=== PATIENT | male | born 1980 | race Caucasian/White ===

== ENCOUNTER 2016-09-27 10:41 | Emergency (ER) | payer OTHER ==
[~2016-09-27] VITALS: Ht 175.3 cm; Wt 84.1 kg
[2016-09-27 10:46] VITALS: BP 128/91; PULSE 72; RESP 15; O2SAT 100
--- NOTE | 2016-09-27 10:53 | ED.REPORT ---
HPI-Medication Refill Date of Service Sep 27, 2016 ED Provider: Melany Stevenson History of Present Illness: need medications lamictal 50 mg l,ast dose 3 days ago, lexapro 10 mg c/o anxiety being seen on Thursday at [facility]. Finished drug and etoh treatment 08/31/2016. 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 drug of choice was meth per his report Nursing Notes Stated Complaint: MEDICATIONS Chief Complaint: General Complaint Nursing Notes Reviewed: Yes Allergies: Coded Allergies: Penicillins (Verified Allergy, Unknown, throat swells?, 09/27/16) General Time Seen by Provider: 10:53 Chief Complaint Out of meds since (out of meds for 3 days) Hx Obtained From: Patient Onset Occurred: 3 days ago Past Medical History Past Medical History Denies: Asthma, Diabetes mellitus, Hypertension Past Surgical History denies Smoking History Current Every Day Smoker (1/2 pack a day for 25 years) Social History Alcohol Use: Denies alcohol use Drug Use: Denies drug use (none for 6 months per his reprt, drug of choice was meth) Other Social History: Lives with parents Occupation no work or school 09/27/2016 Ambulatory Status Independent Review of Systems Basic Review of Systems Eyes: Vision NL Hematologic: No bleeding Psychiatric: Normal thought content Physical Exam Initial Vital Signs Vital Signs (First) Date Time Temp Pulse Resp B/P Pulse Ox O2 Delivery O2 Flow Rate FiO2 09/27/16 10:46 36.0 72 15 128/91 100 Initial VS: Reviewed, Vital signs normal General/Constitutional: Well-developed, Well-nourished Head / Eyes: Atraumatic, Normocephalic, PERRL ENT: Mucous membranes moist, Conjunctiva normal, No scleral icterus Neck: Supple, Non-tender, Full range of motion Respiratory: Breath sounds normal, Clear to auscultation, No respiratory distress Cardiovascular: Regular rate & rhythm, Heart sounds normal, Intact distal pulses Abdomen / GI: Soft, Non-tender, No guarding, No rebound, No distention Back: No CVA tenderness Lymphatic: No lymphadenopathy Extremities: Vascular intact, Neuro intact, No swelling, No tenderness Skin: Warm, Dry, No cyanosis Neurologic: Alert, Oriented, Nonfocal Psychiatric: Mood/affect normal, Behavior normal, Normal thought content General/Constitutional: Awake, Alert, No acute distress, Well appearing, Well developed, Well hydrated, Well nourished, Cooperative, Not toxic appearing Respiratory / Chest: Atraumatic, Breath sounds NL, Breath sounds = bilat, No respiratory distress Cardiovascular: Heart rate NL, Regular rhythm, Heart sounds NL Re-Evaluation & MDM Med Decision/Clinical Course 35 year old male here for refill of medications that were started in treatment for meth use per his report. States has been out of medication for 3 days. Plans to stay in the [facility] and is currently living with his parents. Reports an appointment on Thursday with [facility] to establish there. Patient is also requesting " something for anxiety". Had tapered up to 50 mg on lamictal. Patient is alert and oriented, no slurring of speech, request is reasonable. No sign of current drug use, no sign of etoh use. Discussed with patient with hx of drug use will not provide benzo's but will provide visteral. Patient is agreeable with this. Medication refills are provided with return to ER precautions provided. Severity: Non life-threatening Diagnosis Appears: Benign Counseled Regarding: When/why to return to ED Patient Discharge & Departure Impression: Primary Impression: Medication refill Disposition: Home Additional Instructions: Please keep the appointment that you have scheduled with [facility] on Thursday. It may be 4 to 6 weeks until you have an appointment with a prescriber. You are being provided a 90 day supply, by that time, you should be connected with a prescriber. Your insurance has you as seeing Dr. Murry Please call to schedule an appointment. REturn with any concerns. Congratulations on being clean! Referrals: Oracio Murry MD (PCP) EDSupervising Provider for APC: Darci Barba MD copies to: Oracio Murry MD, Sue ARNP Sep 27, 2016 10:53
== END 2016-09-27 11:20 | disposition home or self-care (01) ==
LOC: SED 11:17
DX: F41.9 Anxiety disorder, unspecified (principal); F17.200 Nicotine dependence, unspecified, uncomplicated; F15.21 Other stimulant dependence, in remission; F10.21 Alcohol dependence, in remission; Z76.0 Encounter for issue of repeat prescription; Z88.0 Allergy status to penicillin

== ENCOUNTER 2017-03-19 11:57 | Emergency (ER) | payer OTHER ==
[~2017-03-19] VITALS: Ht 172.7 cm; Wt 95.5 kg
[2017-03-19 12:01] VITALS: BP 122/80; PULSE 63; RESP 16; O2SAT 96
--- NOTE | 2017-03-19 12:05 | ED.REPORT ---
HPI-General Illness Date of Service Mar 19, 2017 ED Provider: Parminder is a 36-year-old male presenting to the emergency department for medication refill. Patient reports a history of schizoaffective disorder as well as drug and alcohol abuse. Currently in recovery 3 months. Patient reports that he is out of his medications including Lamictal 50 mg, hydroxyzine 50 mg and Lexapro 10 mg. He also states he is taking methadone 135 mg daily. He has taken all of these medications since his recovery began. Patient reports an appointment to be seen by primary care April 07. He has no other complaints. Nursing Notes Stated Complaint: HAVENT BEEN ON MEDICATION LATELY Chief Complaint: General Complaint Nursing Notes Reviewed: Yes Allergies: Coded Allergies: Penicillins (Verified Allergy, Unknown, throat swells?, 09/27/16) Scheduled Escitalopram Oxalate (Lexapro) 10 Mg Tablet 10 MG PO DAILY Scheduled PRN Lamotrigine (Lamictal) 25 Mg Tablet 25 MG PO DIRECTED PRN PRN For Anxiety Take 1 tab by mouth daily for 2 weeks. After that take 2 tabs by mouth daily hydrOXYzine Hcl (HydrOXYzine Hcl) 25 Mg Tablet 25-50 MG PO TID PRN PRN For Anxiety General Time Seen by MD: 12:05 Chief Complaint Medication refill Past Medical History Past Medical History Schizoaffective disorder Past Surgical History denies Smoking History Current Every Day Smoker Social History Alcohol Use: Denies alcohol use Drug Use: Denies drug use Other Social History: Lives with parents Occupation no work or school 09/27/2016 Ambulatory Status Independent Review of Systems Negative unless stated otherwise in history of present illness Physical Exam General: Well appearing, well developed, well nourished, no acute distress. Head: Atraumatic, normocephalic. Eyes: No scleral icterus or injection. No discharge. Vision grossly intact. ENT: Voice clear, hearing grossly intact. Respiratory: No respiratory distress, no increased work of breathing. Speaks in complete sentences. Skin: Warm and dry. Neurological: Grossly nonfocal. Psychological: alert and oriented. Speech appropriate, linear and logical. Behavior appropriate. Vital Signs Vital Signs Date Time Temp Pulse Resp B/P Pulse Ox O2 Delivery O2 Flow Rate FiO2 03/19/17 13:33 36.8 63 16 122/80 96 Room Air 03/19/17 12:01 36.8 63 16 122/80 96 Room Air Normal Re-Eval/Medical Decision Med Decision/Clinical Course 36-year-old male with history of schizoaffective disorder and substance abuse presents the emergency department seeking medication refills. Patient reports an appointment to see primary care April 07, states he is out of his Lamictal , Lexapro and hydroxyzine. He is taking these concurrently with methadone for the last 3 months. He has been out of his medications for 2 weeks. He reports his recovery is progressing well and he has not been using drugs or alcohol. Brief physical examination is reassuring, vital signs are normal. There is no indication of intoxication. I discussed the case with Dr. Sorto, who met with and examined the patient. We feel this is a reasonable request. We will provide prescriptions to bridge him through to his primary care appointment. Lamictal will be titrated up per pharmacist instructions. Advised regarding primary care follow-up, provided emergency return precautions. Patient verbalized understanding of, and consent to, the plan. Discharge & Departure Primary Impression: Medication refill Disposition: Home Discharge Condition All VS Reviewed: Yes Condition: Stable Additional Instructions: I am happy to refill your medications to get you through until your primary care appointment April 07. Start taking 25 mg of Lamictal daily for the next 2 weeks. After that you can start taking 50 mg of Lamictal daily. I have written a prescription for Lexapro 10 mg to be taken daily. I have written a prescription for hydroxyzine 25 mg. Take 1-2 of these up to 3 times a day as needed for anxiety. This can be sedating, so use caution when taking it with your methadone. Do not drive or drink alcohol while taking these medications. Follow up with your primary care provider as planned. Return to emergency department for new or worsening symptoms including chest pain, shortness of breath, feeling faint. Referrals: Carrol Molina MD EDSupervising Provider for APC: Barron Sorto MD Attending Statement I saw and evaluated the patient in conjunction with the PA. I agree with the plan and findings as documented above. In brief, 36-year-old male presenting to the ED asking for medication refill. Well appearing, no acute distress. Nonlabored respirations. Good peripheral perfusion. RRR. No complaints at this time. Given refills, plan discharge home w / careful return precautions, close outpatient follow up. Patient agreeable to plan as stated, no further questions. copies to: Carrol Molina MD, William B MD Mar 19, 2017 12:05 Cale Ribeiro PA-C Mar 19, 2017 12:36
[2017-03-19] MEDS ORDERED: LAMO25TA2 PO (12:40)
[2017-03-19] MEDS ORDERED: HYDR-656 PO (12:40)
[2017-03-19] MEDS ORDERED: ESCI10TA3 PO (12:40)
[2017-03-19 13:33] VITALS: BP 122/80; PULSE 63; RESP 16; O2SAT 96
== END 2017-03-19 13:34 | disposition home or self-care (01) ==
LOC: SED 11:57
DX: Z76.0 Encounter for issue of repeat prescription (principal); F17.200 Nicotine dependence, unspecified, uncomplicated; Z88.0 Allergy status to penicillin